=== PATIENT | female | born 2000 | race Hispanic/Latino ===

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

== ENCOUNTER 2022-09-07 20:17 | Emergency (ER) | payer MEDICAID ==
[2022-09-07] VITALS (13 sets, daily range): BP systolic 99–122; BP diastolic 51–80
[~2022-09-07] VITALS: Ht 152.4 cm; Wt 59.0 kg
[~2022-09-07 20:17] MED LIST changes: +MOTRIN800 MG PO
[2022-09-07 21:39] LABS: HEMOGLOBIN 9.2 g/dl (12.0-16.0); IMMATURE GRANULOCYTES 0.2 % (0.0-5.0); MEAN CORPUSCULAR HGB 22.9 pG CALC (26.0-32.0); MEAN CORPUSCULAR HGB CONC 30.4 g/dL CAL (32.0-36.0); NEUT# 8.32 thou/uL (2.00-7.15); RED BLOOD COUNT 4.01 mill/uL (4.20-5.60); RED CELL DISTRI WIDTH 18.2 % (11.5-15.5)
[2022-09-07 21:41] LABS: HEMATOCRIT 30.3 % (37.0-47.0); MEAN CELL VOLUME 75.6 fL CALC (80.0-100.0)
[2022-09-07 21:42] LABS: URINE BILIRUBIN - DIPSTICK NEGATIVE (NEGATIVE); URINE BLOOD DIPSTICK NEGATIVE (NEGATIVE); URINE COLOR YELLOW; URINE GLUCOSE - DIPSTICK NEGATIVE (NEGATIVE); URINE KETONE NEGATIVE (NEGATIVE); URINE LEUK ESTERASE NEGATIVE (NEGATIVE); URINE PH 8.5 (4.5-8.0); URINE PROTEIN - DIPSTICK TRACE mg/dL (NEG-TRACE); URINE SPECIFIC GRAVITY 1.015; URINE UROBILINOGEN - DIPSTICK 0.2 E.U./dL (0.2)
[2022-09-07 21:43] LABS: URINE NITRITE - DIPSTICK NEGATIVE (Negative)
[2022-09-07 21:52] LABS: ALBUMIN 4.5 g/dL (3.2-5.0); ALKALINE PHOSPHATASE 70 u/l (38-126); ANION GAP 16 (6-22 (CALC)); BUN 6 mg/dL (7-17); BUN/CREATININE RATIO 11 (12-20 (CALC)); CARBON DIOXIDE 23 mmol/l (22-30); CHLORIDE 105 mmol/l (95-108); CREATININE 0.5 mg/dL (0.5-1.0); GFR FOR AFR.AMER. > 60 ML/MIN (>=60 (CALC)); GFR OTHER RACES > 60 ML/MIN (>=60 (CALC)); LIPASE 52 u/l (23-300); POTASSIUM 3.5 mmol/l (3.5-5.1); SGOT/AST 26 u/l (14-36); SODIUM 140 mmol/l (137-146)
[2022-09-07 21:53] LABS: BILIRUBIN, TOTAL 0.2 mg/dL (0.0-1.4)
[2022-09-08 01:09] VITALS: BP 142/93
[2022-09-08 01:16] VITALS: BP 142/91
[2022-09-08 01:31] VITALS: BP 142/94
[2022-09-08 04:14] VITALS: BP 121/90
[2022-09-08 04:30] VITALS: BP 143/55
== END 2022-09-08 00:15 | disposition home or self-care (01) ==
LOC: ED 20:17
PROVIDERS: Internal Medicine
DX: R10.2 Pelvic and perineal pain (principal); D64.9 Anemia, unspecified

== ENCOUNTER 2023-07-26 01:31 | Emergency (ER) | payer MEDICAID ==
[2023-07-26] VITALS (10 sets, daily range): BP systolic 95–114; BP diastolic 56–76
[~2023-07-26] VITALS: Ht 152.4 cm; Wt 70.0 kg
[2023-07-26 02:31] LABS: BASO% 0.6 % (0-3); EOS% 1.9 % (0-8); HEMATOCRIT 34.3 % (37.0-47.0); HEMOGLOBIN 10.6 g/dl (12.0-16.0); IMMATURE GRANULOCYTES 0.2 % (0.0-5.0); MEAN CELL VOLUME 78.1 fL CALC (80.0-100.0); MEAN CORPUSCULAR HGB 24.1 pG CALC (26.0-32.0); MEAN CORPUSCULAR HGB CONC 30.9 g/dL CAL (32.0-36.0); MONO% 7.6 % (2-13); NEUT# 2.78 thou/uL (2.00-7.15); NEUT% 51.7 % (42-76); RED BLOOD COUNT 4.39 mill/uL (4.20-5.60); RED CELL DISTRI WIDTH 19.1 % (11.5-15.5)
[2023-07-26 02:43] LABS: ALBUMIN 4.4 g/dL (3.2-5.0); ALKALINE PHOSPHATASE 71 u/l (38-126); ANION GAP 14 (6-22 (CALC)); BILIRUBIN, TOTAL 0.2 mg/dL (0.02-1.3); BUN 6 mg/dL (7-17); BUN/CREATININE RATIO 10 (12-20 (CALC)); CARBON DIOXIDE 24 mmol/l (22-30); CHLORIDE 107 mmol/l (95-108); CREATININE 0.6 mg/dL (0.5-1.0); ETHYL ALCOHOL 33 mg/dl (0-30); GFR FOR AFR.AMER. > 60 ML/MIN (>=60 (CALC)); GFR OTHER RACES > 60 ML/MIN (>=60 (CALC)); POTASSIUM 3.6 mmol/l (3.5-5.1); SGOT/AST 48 u/l (14-36); SODIUM 141 mmol/l (137-146); TOTAL PROTEIN 8.1 g/dL (6.3-8.2)
[2023-07-26 04:38] LABS: URINE BILIRUBIN - DIPSTICK Negative (NEGATIVE); URINE BLOOD DIPSTICK Negative (NEGATIVE); URINE COLOR Yellow; URINE GLUCOSE - DIPSTICK Negative (NEGATIVE); URINE KETONE Trace mg/dL (NEGATIVE); URINE LEUK ESTERASE Large (NEGATIVE); URINE NITRITE - DIPSTICK Negative (Negative); URINE PROTEIN - DIPSTICK 30 mg/dL (NEG-TRACE); URINE UROBILINOGEN - DIPSTICK 0.2 E.U./dL (0.2)
[2023-07-26 04:45] LABS: URINE BACTERIA MANY hpf; URINE MUCUS FEW hpf (NONE-FEW); URINE SQUAMOUS EPITHELIAL CELL FEW EPI/hpf (0-FEW); URINE WBC 20-50 WBC/hpf (0-5)
[2023-07-26] MEDS ORDERED: AMOXICILLIN500 M2 PO (05:15)
== END 2023-07-26 06:45 | disposition home or self-care (01) ==
LOC: ED 01:31
PROVIDERS: Emergency Medicine
DX: S01.511A Laceration without foreign body of lip, initial encounter (principal); W10.9XXA Fall (on) (from) unspecified stairs and steps, initial encounter; Y92.009 Unspecified place in unspecified non-institutional (private) residence as the place of occurrence of the external cause; F10.129 Alcohol abuse with intoxication, unspecified; Y90.1 Blood alcohol level of 20-39 mg/100 ml

== ENCOUNTER 2023-07-29 16:24 | Emergency (ER) | payer MEDICAID ==
[~2023-07-29] VITALS: Ht 152.4 cm; Wt 58.0 kg
[~2023-07-29 16:24] MED LIST changes: +AMOXICILLIN500 M2 PO
[2023-07-29 16:31] VITALS: BP 110/78
[2023-07-29 16:45] VITALS: BP 108/67
[2023-07-29 17:00] VITALS: BP 103/69
[2023-07-29 17:16] VITALS: BP 103/69; BP 108/67
== END 2023-07-29 17:19 | disposition home or self-care (01) ==
LOC: ED 16:24
DX: S01.511D Laceration without foreign body of lip, subsequent encounter (principal); X58.XXXD Exposure to other specified factors, subsequent encounter

== ENCOUNTER 2023-08-03 13:34 | Emergency (ER) | payer MEDICAID ==
[~2023-08-03] VITALS: Ht 152.4 cm; Wt 56.6 kg
[2023-08-03 14:07] VITALS: BP 107/70
== END 2023-08-03 14:10 | disposition home or self-care (01) ==
LOC: ED 13:34
DX: T81.33XA Disruption of traumatic injury wound repair, initial encounter (principal); Y83.8 Other surgical procedures as the cause of abnormal reaction of the patient, or of later complication, without mention of misadventure at the time of the procedure